=== PATIENT | male | born 1955 | race American Indian/Alaskan Native ===

== ENCOUNTER 2018-04-11 13:43 | Outpatient (CLI) | payer OTHER ==
--- NOTE | 2018-04-11 15:24 | XRay Report ---
PA and lateral chest: COPD; back pain. The lungs are mildly hyperinflated but clear of any infiltrate or nodule. The hilar and mediastinal regions are unremarkable. Minimal spondylosis identified in the mid thoracic bodies. No prior exam for comparison. Impression: Hyperinflation. No acute finding suspected. Lumbar spine: Back pain. AP and lateral projections demonstrate normal alignment in both projections. The vertebral height is maintained. There is mild narrowing of the L4-5 intervertebral disc space with mild anterior and posterior spondylosis at this level as well as anteriorly at L3-4. There is no visible interspace between L5 and S1 with apparent bony union of the bodies and posterior processes. The bones are moderately well mineralized. Impression: Lower lumbar spondylosis with evidence of degenerative L4-5 disc. 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
== END 2018-04-11 13:44 | disposition home or self-care (01) ==
LOC: XRAY 13:43
PROVIDERS: ATTEND Internal Medicine
DX: Z02.71 Encounter for disability determination (principal); J44.9 Chronic obstructive pulmonary disease, unspecified; M47.896 Other spondylosis, lumbar region
CPT/HCPCS: 71046; 72100

== ENCOUNTER 2018-05-31 12:56 | Outpatient (CLI) | payer OTHER ==
[2018-05-31] MEDS ORDERED: PROVENTIL IH ONE (13:30)
== END 2018-05-31 12:57 | disposition home or self-care (01) ==
LOC: PF 12:56
PROVIDERS: ATTEND Internal Medicine
DX: J44.9 Chronic obstructive pulmonary disease, unspecified (principal)
CPT/HCPCS: 94060; 94640; 94729